=== PATIENT | male | born 1975 | race Caucasian/White ===

== ENCOUNTER → 2022-09-19 | Outpatient (CLI) | payer OTHER ==
--- NOTE | 2022-09-19 08:56 | US ---
EXAMINATION TYPE: US liver DATE OF EXAM: 09/19/2022 COMPARISON: NONE CLINICAL INDICATION: Male, 47 years old with history of R94.5; Elevated LFT's TECHNIQUE: Multiple sonographic images of the right upper quadrant are obtained. FINDINGS: EXAM MEASUREMENTS: Liver Length: 20.9 cm Gallbladder Wall: 0.2 cm CBD: 0.4 cm Right Kidney: 11.9 x 4.8 x 6.4 cm SURVEILLANCE OBSERVER NOTES: Pancreas: Obscured by bowel gas Liver: Enlarged, heterogenous, hypoechoic area adjacent to GB= 3.3 x 2.2 x 2.6 cm ?fatty sparing Gallbladder: Lumen clear, possibly distended Evidence for sonographic Smiley's sign: No CBD: wnl Right Kidney: wnl IMPRESSION: 1. Hepatic steatosis with focal fatty sparing. 2. No evidence for acute process.
== END | disposition home or self-care (01) ==
LOC: RADUSWWP 08:06
PROVIDERS: ATTEND Family Medicine
DX: K76.0 Fatty (change of) liver, not elsewhere classified (principal); R94.5 Abnormal results of liver function studies
CPT/HCPCS: 76705

== ENCOUNTER → 2022-11-11 | Outpatient (CLI) | payer OTHER ==
[2022-11-11 20:12] LABS: Basophils # (A) 0.03 X 10*3/uL (0.00-0.10); Basophils % (A) 0.3 %; Eosinophils # (A) 0.07 X 10*3/uL (0.04-0.35); Eosinophils % (A) 0.8 %; HCT 48.6 % (39.6-50.0); HGB 15.8 d/dL (13.0-17.0); Lymphocytes # (A) 1.03 X 10*3/uL (0.90-5.00); Lymphocytes % (A) 11.8 %; MCH 32.8 pg (27.0-32.0); MCHC 32.5 d/dL (32.0-37.0); Mean Platelet Volume 10.6 FL (9.5-12.2); Monocytes # (A) 0.89 X 10*3/uL (0.20-1.00); Monocytes % (A) 10.2 %; NRBC Per 100 WBC 0 X 10*3/uL (0.00-0.01); Neutrophils # (A) 6.66 X 10*3/uL (1.80-7.70); Neutrophils % (A) 76.7 %; Platelet Count 387 X 10*3/uL (140-440); RBC 4.81 X 10*6/uL (4.40-5.60); RDW 13.7 % (11.5-14.5)
[2022-11-11 21:47] LABS: % Iron Saturation 40.12 (15.00-50.00); ALT 27 U/L (10-49); AST 112 U/L (14-35); Albumin 3.5 d/dL (3.8-4.9); Alkaline Phosphatase 186 U/L (41-126); BUN/Creat Ratio <4.38 Ratio (12.00-20.00); Blood Urea Nitrogen <3.5 mg/dL (9.0-27.0); Calcium 9.4 mg/dL (8.7-10.3); Chloride 97 mmol/L (96-109); Globulin 3.5 d/dL (1.6-3.3); Glucose 101 mg/dL (70-110); Iron 65 UG/DL (65-175); Potassium 5.2 mmol/L (3.5-5.5); Sodium 135 mmol/L (135-145); Total Iron Binding Capacity 162 UG/DL (228-460)
[2022-11-11 22:21] LABS: Ceruloplasmin 22.5 mg/dL (20.0-60.0)
[2022-11-11 22:27] LABS: Hepatitis B Surface Antigen Nonreactive; Hepatitis C IgG Antibody Nonreactive
== END | disposition home or self-care (01) ==
LOC: LABWHC1 12:57
PROVIDERS: ATTEND Internal Medicine Gastroenterology
DX: R74.8 Abnormal levels of other serum enzymes (principal)
CPT/HCPCS: 36415; 80053; 82103; 82390; 82728; 83516; 83540; 83550; 84165; 85025; 86038; 86803; 87340

== ENCOUNTER → 2023-02-17 | Outpatient (CLI) | payer OTHER ==
[2023-02-17 21:16] LABS: Basophils # (A) 0.02 X 10*3/uL (0.00-0.10); Basophils % (A) 0.2 %; Eosinophils # (A) 0.06 X 10*3/uL (0.04-0.35); Eosinophils % (A) 0.7 %; HCT 43.3 % (39.6-50.0); Lymphocytes % (A) 18.4 %; MCH 31.3 pg (27.0-32.0); MCHC 32.3 g/dL (32.0-37.0); MCV 96.7 FL (80.0-97.0); Monocytes # (A) 0.87 X 10*3/uL (0.20-1.00); Monocytes % (A) 9.4 %; NRBC Per 100 WBC 0 X 10*3/uL (0.00-0.01); Neutrophils # (A) 6.54 X 10*3/uL (1.80-7.70); Platelet Count 281 X 10*3/uL (140-440); RBC 4.48 X 10*6/uL (4.40-5.60); RDW 15.6 % (11.5-14.5); WBC 9.22 X 10*3/uL (4.50-10.00)
[2023-02-17 21:23] LABS: ALT 74 U/L (10-49); AST 162 U/L (14-35); Albumin 3.5 g/dL (3.8-4.9); Albumin/Globulin Ratio 1.03 Ratio (1.60-3.17); Alkaline Phosphatase 178 U/L (41-126); BUN/Creat Ratio <5.00 Ratio (12.00-20.00); Blood Urea Nitrogen <3.5 mg/dL (9.0-27.0); Calcium 9.4 mg/dL (8.7-10.3); Carbon Dioxide 28.3 mmol/L (21.6-31.8); Chloride 100 mmol/L (96-109); Globulin 3.4 g/dL (1.6-3.3); Glucose 92 mg/dL (70-110); Potassium 4.5 mmol/L (3.5-5.5); Sodium 139 mmol/L (135-145); Total Bilirubin 0.6 mg/dL (0.3-1.2); Total Protein 6.9 g/dL (6.2-8.2)
== END | disposition home or self-care (01) ==
LOC: LABWHC1 13:12
PROVIDERS: ATTEND Internal Medicine Gastroenterology
DX: K70.9 Alcoholic liver disease, unspecified (principal)
CPT/HCPCS: 36415; 80053; 82105; 82140; 85025

== ENCOUNTER 2023-04-21 08:46 | Day surgery (SDC) | payer OTHER ==
[2023-04-17 10:25] VITALS: BMI 24.3
[~2023-04-21 08:46] MED LIST: LACTATED RINGERS 1,000 ML IV SCH; LIDOCAINE 1% (10MG/ML) FOR IV START INTRADERMA PRN
[2023-04-21] MEDS ORDERED: LACTATED RINGERS 1,000 ML IV ONE (09:01)
[2023-04-21 09:17] VITALS: TEMP 97.1
[2023-04-21] MEDS ORDERED: MIDAZOLAM 2 MG/2 ML VIAL ONE (09:42)
[2023-04-21] MEDS ORDERED: fentaNYL (PF) 50 MCG/ML 2 ML AMP ONE (09:42)
[2023-04-21] MEDS ORDERED: PROPOFOL 10 MG/ML 20 ML VIAL IV ONE (09:42)
[2023-04-21] MEDS ORDERED: LIDOCAINE 2% (PF) 20 MG/ML 5 ML VIAL ONE (09:42)
--- NOTE | 2023-04-21 10:15 | P.PCN ---
Date of Procedure: 04/21/23 Procedure(s) Performed: Brief history: Patient is a pleasant 47-year-old white male scheduled for an elective upper endoscopy as well as colonoscopy as a part of evaluation of abdominal pain/decreased appetite/progressive weight loss of 60 pounds and screening for colon cancer Procedure performed: Esophagogastroduodenoscopy with biopsy Colonoscopy with snare polypectomy Preoperative diagnosis: Abdominal pain/decreased appetite and progressive weight loss of 60 pounds Screening for colon cancer Anesthesia: MAC Procedure: After informed consent was obtained from the patient was brought into the endoscopy unit and IV sedation was administered by anesthesia under continuous monitoring. Initially upper endoscopy was done. The Olympus GF 160 video endoscope was inserted inserted into the mouth and esophagus intubated without any difficulty and was gradually advanced into the stomach and duodenum and carefully examined. The bulb and second part of the duodenum appeared normal. The scope was then withdrawn into the stomach adequately insufflated with air and upon careful examination the antrum had mild gastritis and biopsies were done from this area. Mucosa of the body, cardia and fundus appeared normal. The scope was then withdrawn into the esophagus. Moderate size hiatal hernia noted. The GE junction was located at 38 cm to the incisors. There was a short segment of Stewart's esophagus extending 1.5 cm proximal to the GE junction which was biopsied. Rest of esophagus appeared normal and the patient tolerated the procedure well. At this time the patient continued to remain sedation. Initial digital rectal examination was normal. Olympus CF 160 video colonoscope was then inserted into the rectum and gradually advanced to the cecum without any difficulty. Careful examination was performed as the scope was gradually being withdrawn. The prep was fair.. The cecum had a 5 limited polyp that was removed by cold snare polypectomy. Rest of the, ascending colon, transverse colon, normal. In the descending colon there were 3 polyps measuring 5 mm, 1 cm and 1.2 cm right solids which were removed by snare polypectomy. Rest of the descending colon, sigmoid colon and rectum appeared normal. Retroflexion was performed in the rectum and no lesions were noted. Patient tolerated the procedure well. Impression: 1. Upper endoscopy revealed antral gastritis, moderate size hiatal hernia and short segment Stewart's esophagus 2. Colonoscopy revealed 5 mm cecal polyp, 5 mm, 1 cm and 1 cm descending colon polyp , status post snare polypectomy. Recommendations: Findings of this examination were discussed with the patient as well as his family. He was advised to follow with the biopsy results. Continue with Prilosec 20 mg daily and follow antireflux measures. If the biopsy reveals Stewart's esophagus he was advised to have a repeat surveillance upper endoscopy in 3 years. if the biopsy of the colon polyps reveal adenomatous can have a repeat surveillance colonoscopy in 3 years
[2023-04-21 10:55] VITALS: BP 121/81; PULSE 98; RESP 16
== END 2023-04-21 10:54 | disposition home or self-care (01) ==
LOC: ORWHC2ENDO 08:46
PROVIDERS: ATTEND Internal Medicine Gastroenterology
DX: Z12.11 Encounter for screening for malignant neoplasm of colon (principal); D72.820 Lymphocytosis (symptomatic); K31.89 Other diseases of stomach and duodenum; K21.00 Gastro-esophageal reflux disease with esophagitis, without bleeding; D12.0 Benign neoplasm of cecum; D12.4 Benign neoplasm of descending colon; K44.9 Diaphragmatic hernia without obstruction or gangrene; K29.50 Unspecified chronic gastritis without bleeding; I10 Essential (primary) hypertension; F17.210 Nicotine dependence, cigarettes, uncomplicated; F10.90 Alcohol use, unspecified, uncomplicated; Z79.899 Other long term (current) drug therapy; Z98.890 Other specified postprocedural states
CPT/HCPCS: 88305; 45385; 43239; J2250; J3010; J2704; J2001

== ENCOUNTER → 2023-05-22 | Outpatient (CLI) | payer OTHER ==
[2023-05-23 01:49] LABS: BUN/Creat Ratio <3.89 Ratio (12.00-20.00); Blood Urea Nitrogen <3.5 mg/dL (9.0-27.0); Carbon Dioxide 28.2 mmol/L (21.6-31.8); Chloride 98 mmol/L (96-109); Glucose 87 mg/dL (70-110); Iron 200 UG/DL (65-175); Potassium 5.1 mmol/L (3.5-5.5); Sodium 138 mmol/L (135-145)
[2023-05-23 01:50] LABS: ALT 57 U/L (10-49); AST 143 U/L (14-35); Albumin 3.6 g/dL (3.8-4.9); Albumin/Globulin Ratio 1.06 Ratio (1.60-3.17); Alkaline Phosphatase 214 U/L (41-126); Calcium 9.5 mg/dL (8.7-10.3); Globulin 3.4 g/dL (1.6-3.3); Total Bilirubin 0.9 mg/dL (0.3-1.2)
[2023-05-23 02:24] LABS: Basophils # (A) 0.03 X 10*3/uL (0.00-0.10); Basophils % (A) 0.3 %; Eosinophils # (A) 0.04 X 10*3/uL (0.04-0.35); Eosinophils % (A) 0.4 %; HCT 52.5 % (39.6-50.0); HGB 17.3 g/dL (13.0-17.0); Lymphocytes # (A) 2.13 X 10*3/uL (0.90-5.00); Lymphocytes % (A) 22.7 %; MCH 31.9 pg (27.0-32.0); MCV 96.7 FL (80.0-97.0); Mean Platelet Volume 10.4 FL (9.5-12.2); Monocytes % (A) 10.7 %; NRBC Per 100 WBC 0 X 10*3/uL (0.00-0.01); Neutrophils # (A) 6.13 X 10*3/uL (1.80-7.70); Neutrophils % (A) 65.5 %; Platelet Count 299 X 10*3/uL (140-440); RBC 5.43 X 10*6/uL (4.40-5.60); RDW 14.6 % (11.5-14.5); WBC 9.37 X 10*3/uL (4.50-10.00)
== END | disposition home or self-care (01) ==
LOC: LABWHC1 15:30
PROVIDERS: ATTEND Internal Medicine Gastroenterology
DX: K70.9 Alcoholic liver disease, unspecified (principal)
CPT/HCPCS: 36415; 80053; 82728; 83540; 85025

== ENCOUNTER → 2023-09-12 | Outpatient (CLI) | payer OTHER ==
[2023-09-12 18:41] LABS: Basophils # (A) 0.04 X 10*3/uL (0.00-0.10); Basophils % (A) 0.4 %; Eosinophils # (A) 0.05 X 10*3/uL (0.04-0.35); Eosinophils % (A) 0.5 %; HCT 54.9 % (39.6-50.0); HGB 18.4 g/dL (13.0-17.0); Lymphocytes % (A) 22.5 %; MCH 32.7 pg (27.0-32.0); MCHC 33.5 g/dL (32.0-37.0); MCV 97.7 FL (80.0-97.0); Mean Platelet Volume 10.3 FL (9.5-12.2); Monocytes # (A) 1.08 X 10*3/uL (0.20-1.00); Monocytes % (A) 11.6 %; NRBC Per 100 WBC 0 X 10*3/uL (0.00-0.01); Neutrophils # (A) 6.03 X 10*3/uL (1.80-7.70); Neutrophils % (A) 64.8 %; Platelet Count 259 X 10*3/uL (140-440); RBC 5.62 X 10*6/uL (4.40-5.60); RDW 15.7 % (11.5-14.5); WBC 9.32 X 10*3/uL (4.50-10.00)
[2023-09-12 20:35] LABS: ALT 44 U/L (10-49); AST 122 U/L (14-35); Albumin 3.6 g/dL (3.8-4.9); Albumin/Globulin Ratio 1.03 Ratio (1.60-3.17); Alkaline Phosphatase 264 U/L (41-126); BUN/Creat Ratio <4.38 Ratio (12.00-20.00); Blood Urea Nitrogen <3.5 mg/dL (9.0-27.0); Calcium 9.5 mg/dL (8.7-10.3); Carbon Dioxide 23.3 mmol/L (21.6-31.8); Chloride 98 mmol/L (96-109); Globulin 3.5 g/dL (1.6-3.3); Glucose 89 mg/dL (70-110); Potassium 4.8 mmol/L (3.5-5.5); Sodium 139 mmol/L (135-145); Total Bilirubin 0.9 mg/dL (0.3-1.2); Total Protein 7.1 g/dL (6.2-8.2)
== END | disposition home or self-care (01) ==
LOC: LABWHC1 14:10
PROVIDERS: ATTEND Internal Medicine Gastroenterology
DX: K70.9 Alcoholic liver disease, unspecified (principal)
CPT/HCPCS: 36415; 80053; 82105; 85025

== ENCOUNTER → 2023-10-09 | Outpatient (CLI) | payer OTHER ==
[2023-10-09 21:01] LABS: Basophils # (A) 0.03 X 10*3/uL (0.00-0.10); Basophils % (A) 0.3 %; Eosinophils # (A) 0.08 X 10*3/uL (0.04-0.35); Eosinophils % (A) 0.8 %; HCT 50.8 % (39.6-50.0); HGB 17.6 g/dL (13.0-17.0); Lymphocytes # (A) 1.45 X 10*3/uL (0.90-5.00); Lymphocytes % (A) 14.7 %; MCH 33.3 pg (27.0-32.0); MCHC 34.6 g/dL (32.0-37.0); MCV 96.2 FL (80.0-97.0); Mean Platelet Volume 10.2 FL (9.5-12.2); Monocytes # (A) 1.15 X 10*3/uL (0.20-1.00); Monocytes % (A) 11.7 %; NRBC Per 100 WBC 0 X 10*3/uL (0.00-0.01); Neutrophils % (A) 71.9 %; Platelet Count 265 X 10*3/uL (140-440); RBC 5.28 X 10*6/uL (4.40-5.60); RDW 13.6 % (11.5-14.5); WBC 9.87 X 10*3/uL (4.50-10.00)
[2023-10-09 21:11] LABS: ALT 18 U/L (10-49); AST 38 U/L (14-35); Albumin 3.6 g/dL (3.8-4.9); Albumin/Globulin Ratio 1.03 Ratio (1.60-3.17); Alkaline Phosphatase 215 U/L (41-126); BUN/Creat Ratio 4.62 Ratio (12.00-20.00); Blood Urea Nitrogen 3.7 mg/dL (9.0-27.0); Calcium 9.2 mg/dL (8.7-10.3); Chloride 92 mmol/L (96-109); Globulin 3.5 g/dL (1.6-3.3); Glucose 86 mg/dL (70-110); Potassium 3.8 mmol/L (3.5-5.5); Sodium 133 mmol/L (135-145); Total Bilirubin 0.7 mg/dL (0.3-1.2); Total Protein 7.1 g/dL (6.2-8.2)
[2023-10-09 21:21] LABS: Erythrocyte Sedimentation Rate 40 mm/Hr (0-15)
== END | disposition home or self-care (01) ==
LOC: LABWHC1 14:33
PROVIDERS: ATTEND Internal Medicine Gastroenterology
DX: K52.9 Noninfective gastroenteritis and colitis, unspecified (principal); K70.9 Alcoholic liver disease, unspecified
CPT/HCPCS: 36415; 80053; 82653; 85025; 85652; 86140

== ENCOUNTER → 2023-10-12 | Outpatient (CLI) | payer OTHER ==
--- NOTE | 2023-10-12 15:15 | CT ---
EXAMINATION TYPE: CT abdomen pelvis w con DATE OF EXAM: 10/12/2023 COMPARISON: NONE HISTORY: 48-year-old male R63.4, abdominal pain, weight loss TECHNIQUE: Contiguous axial scanning of the abdomen and pelvis following administration of 100 ml Iso edis 300 IV contrast. Delayed images through the kidneys and coronal/sagittal reconstructions perform ed. CT DLP: 470.6 mGycm Automated exposure control for dose reduction was used. FINDINGS: The heart is normal size without pericardial effusion. Lung bases clear without pleural effusion. There is a large hiatal hernia involving two thirds of the stomach located within the lower chest. Liver enlarged at 22.7 cm with diminished attenuation. No focal lesions seen. Portal venous system is patent. No biliary ductal rotation. A few small layering gallstones measuring up to 4 mm. No abnormal gallbladder distention. Adrenal glands, spleen, and pancreas within normal limits. The kidneys show symmetric uptake but delayed excretion into the collecting systems. This can be janice elated with BUN/creatinine. No dilated small bowel, free fluid, or free air. No mesenteric or retroperitoneal lymphadenopathy. Normal appendix. Moderate circumferential wall thickening noted along the cecum and ascending colon. Segmental mild to moderate circumferential wall thickening proximal third transverse colon. Left-sided colonic diverticulosis especially within the sigmoid colon. Mild circumferential wall thic kening sigmoid colon. No pericolonic inflammatory change. Prominent distention of the urinary bladder. Prostate gland mildly enlarged at 4.5 cm wide. Numerous pelvic phleboliths. No abnormal fluid collection in the pelvis or pelvic lymphadenopathy. Bones: Moderate degenerative disc disease L5-S1. No osseous destructive process. IMPRESSION: 1. MODERATE SEGMENTAL COLONIC WALL THICKENING ESPECIALLY CECUM, ASCENDING COLON, AND PROXIMAL TRANSVE RSE COLON. LESSER DEGREE OF CIRCUMFERENTIAL WALL THICKENING SIGMOID COLON. CORRELATE FOR A NONSPECIFI C INFECTIOUS OR INFLAMMATORY COLITIS INCLUDING THE POSSIBILITY OF IBD. 2. LEFT-SIDED COLONIC DIVERTICULOSIS WITHOUT EVIDENCE FOR ACUTE DIVERTICULITIS. 3. HEPATOMEGALY AT 22.7 CM WITH UNDERLYING FATTY INFILTRATION OF THE LIVER. 4. LARGE HIATAL HERNIA WITH TWO THIRDS OF THE STOMACH LOCATED IN THE LOWER CHEST. CORRELATE FOR ANY A SSOCIATED SYMPTOMS. 5. A FEW SMALL GALLSTONES. 6. DELAYED EXCRETION OF CONTRAST INTO THE COLLECTING SYSTEMS. CORRELATE WITH BUN/CREATININE TO EXCLUD E NANO.
== END | disposition home or self-care (01) ==
LOC: RADCTMAIN 12:40
PROVIDERS: ATTEND Internal Medicine Gastroenterology
DX: K57.30 Diverticulosis of large intestine without perforation or abscess without bleeding (principal); K63.89 Other specified diseases of intestine; K76.0 Fatty (change of) liver, not elsewhere classified; K44.9 Diaphragmatic hernia without obstruction or gangrene; K80.20 Calculus of gallbladder without cholecystitis without obstruction; R16.0 Hepatomegaly, not elsewhere classified; R63.4 Abnormal weight loss; F17.210 Nicotine dependence, cigarettes, uncomplicated
CPT/HCPCS: 74177; Q9967

== ENCOUNTER → 2024-01-12 | Outpatient (CLI) | payer OTHER ==
--- NOTE | 2024-01-12 16:52 | CT ---
EXAMINATION TYPE: CT chest w con DATE OF EXAM: 01/12/2024 COMPARISON: None HISTORY: Hiatal hernia. Abnormal weight loss. 90lbs x1year. CT DLP: 178.1 mGycm Automated exposure control for dose reduction was used. TECHNIQUE: CT scan of the chest is performed with IV Contrast, patient injected with 100ml mL of Isovue 300. MT P Images are created on CT scanner and reviewed. 3D reconstructed images are created on an [employer] workstation and reviewed. FINDINGS: There is a very subtle fine reticular nodular pattern throughout the lungs greatest in the upper lobe s. This is a nonspecific finding and could represent an acute inflammatory process, chronic inflammat ory disease such as sarcoidosis, occupational lung diseases or malignancy among other potential etiol ogies. There is no airspace consolidation. There is no pleural effusion or pneumothorax Great vessels the chest are normal and there is no mediastinal, hilar or axillary adenopathy. There is a large hiatal hernia. There is fatty infiltration of the liver. No focal osseous lesions are seen. IMPRESSION: 1. Diffuse reticular nodular opacity throughout both lungs, see above for potential differential diag noses. Further workup is warranted. 2. No mediastinal, hilar or axillary adenopathy. 3. No airspace consolidation, pleural effusion or pneumothorax. 4. Large hiatal hernia. 5. Fatty liver. [facility], , 01/12/2024 4:50 PM
== END | disposition home or self-care (01) ==
LOC: RADCTMAIN 15:02
PROVIDERS: ATTEND Family Medicine
DX: K44.9 Diaphragmatic hernia without obstruction or gangrene (principal); K76.0 Fatty (change of) liver, not elsewhere classified
CPT/HCPCS: 71260

== ENCOUNTER → 2024-01-15 | Outpatient (CLI) | payer OTHER ==
[2024-01-15 19:05] LABS: Basophils # (A) 0.03 X 10*3/uL (0.00-0.10); Basophils % (A) 0.4 %; Eosinophils # (A) 0.04 X 10*3/uL (0.04-0.35); Eosinophils % (A) 0.6 %; HCT 50.9 % (39.6-50.0); HGB 16.9 g/dL (13.0-17.0); Lymphocytes # (A) 1.92 X 10*3/uL (0.90-5.00); Lymphocytes % (A) 26.9 %; MCH 33.1 pg (27.0-32.0); MCHC 33.2 g/dL (32.0-37.0); MCV 99.8 FL (80.0-97.0); Mean Platelet Volume 11.8 FL (9.5-12.2); Monocytes # (A) 0.68 X 10*3/uL (0.20-1.00); Monocytes % (A) 9.5 %; NRBC Per 100 WBC 0 X 10*3/uL (0.00-0.01); Neutrophils # (A) 4.47 X 10*3/uL (1.80-7.70); Neutrophils % (A) 62.5 %; Platelet Count 209 X 10*3/uL (140-440); RDW 14.3 % (11.5-14.5); WBC 7.15 X 10*3/uL (4.50-10.00)
[2024-01-15 19:37] LABS: ALT 22 U/L (10-49); AST 49 U/L (14-35); Albumin 3.4 g/dL (3.8-4.9); Albumin/Globulin Ratio 1.03 Ratio (1.60-3.17); Alkaline Phosphatase 185 U/L (41-126); BUN/Creat Ratio <5.83 Ratio (12.00-20.00); Blood Urea Nitrogen <3.5 mg/dL (9.0-27.0); Calcium 8.9 mg/dL (8.7-10.3); Chloride 106 mmol/L (96-109); Globulin 3.3 g/dL (1.6-3.3); Glucose 83 mg/dL (70-110); Sodium 143 mmol/L (135-145); Total Bilirubin 0.7 mg/dL (0.3-1.2); Total Protein 6.7 g/dL (6.2-8.2)
== END | disposition home or self-care (01) ==
LOC: LABWHC1 14:07
PROVIDERS: ATTEND Internal Medicine Gastroenterology
DX: K70.9 Alcoholic liver disease, unspecified (principal)
CPT/HCPCS: 36415; 80053; 82105; 85025

== ENCOUNTER → 2024-09-12 | Outpatient (CLI) | payer OTHER | END | disposition home or self-care (01) | LOC: LABWHC1 16:08 | PROVIDERS: ATTEND Internal Medicine Gastroenterology | DX: R41.0 Disorientation, unspecified (principal) | CPT/HCPCS: 36415; 82140 ==

== ENCOUNTER → 2024-10-14 | Outpatient (CLI) | payer OTHER ==
--- NOTE | 2024-10-14 10:04 | US ---
EXAMINATION TYPE: US liver DATE OF EXAM: 10/14/2024 COMPARISON: CT CLINICAL INDICATION: Male, 49 years old with history of K70.30 ALCOHOLIC CIRRHOSIS OF LIVER WITHOUT A SCITE; cirrhosis TECHNIQUE: Grayscale and color Doppler imaging of the right upper quadrant was performed. FINDINGS: EXAM MEASUREMENTS: Liver Length: 20.1 cm Gallbladder Wall: .4 cm CBD: .5 cm Right Kidney: 10 x 4.3 x 4.9 cm BAR ATTENDANT NOTES: Pancreas: Obscured by bowel gas Liver: Hepatomegaly ascites visualized. Gallbladder: Echogenic foci seen Evidence for sonographic Smiley's sign: no CBD: wnl Right Kidney: No hydronephrosis or masses seen IMPRESSION: 1. No evidence for acute process. 2. Hepatic steatosis with hepatomegaly 3. Small to moderate ascites. [facility], , 10/14/2024 10:02 AM
== END | disposition home or self-care (01) ==
LOC: RADUSWWP 09:03
PROVIDERS: ATTEND Internal Medicine Gastroenterology
DX: K70.31 Alcoholic cirrhosis of liver with ascites (principal); K76.0 Fatty (change of) liver, not elsewhere classified; R16.0 Hepatomegaly, not elsewhere classified
CPT/HCPCS: 76705